=== PATIENT | female | born 1980 | race African-American/Black ===

== ENCOUNTER 2019-07-10 18:10 | Inpatient (IN) | payer BC ==
[~2019-07-10] VITALS: Ht 154.9 cm; Wt 61.7 kg
[2019-07-10 19:10] LABS: CHLORIDE 105 mEq/L (98-107)
[2019-07-10 19:15] LABS: D-DIMER < 0.19 mg/L FEU (<0.50); ETHANOL BLOOD < 10 mg/dL; INR 1.1; PROTHROMBIN TIME 11.2 sec (9.6-11.0)
[2019-07-10 19:17] LABS: LDL CHOLESTEROL 128 mg/dL (5-100)
[2019-07-10 19:20] LABS: CREATINE KINASE 63 IU/L (26-192)
[2019-07-10 19:21] LABS: BASOPHILS % 0.6 % (0.0-2.0); EOSINOPHILS % 1.7 % (0.0-5.0); HEMATOCRIT. 38.9 % (36.0-48.0); HEMOGLOBIN. 13.1 g/dL (12.0-16.0); LYMPHOCYTES % 38.8 % (20.0-50.0); MEAN CORPUSCULAR HEMOGLOBIN 30.3 pg (28.0-32.0); MEAN CORPUSCULAR VOLUME 89.9 fL (81.0-99.0); MEAN PLATELET VOLUME 8.4 fl (7.4-10.4); MONOCYTES % 7.1 % (2.0-8.0); NEUTROPHILS % 51.8 % (40.0-76.0); PLATELET 212 x1000/uL (130-400); RED BLOOD CELL COUNT 4.32 mill/uL (4.2-5.4); RED CELL DISTRIBUTION WIDTH 13.6 % (11.6-14.6)
[2019-07-10 19:22] LABS: HCG SCREEN NEGATIVE
[2019-07-10 20:00] LABS: CLARITY URINE CLEAR (CLEAR); COLOR URINE YELLOW (YELLOW); KETONES URINE NEGATIVE (NEGATIVE); LEUKOCYTE ESTERASE URINE NEGATIVE (NEGATIVE); NITRITE URINE NEGATIVE (NEGATIVE); OCCULT BLOOD URINE NEGATIVE (NEGATIVE); PROTEIN URINE NEGATIVE (NEGATIVE); SPECIFIC GRAVITY URINE 1.015 (1.005-1.030); UROBILINOGEN URINE 0.2 E.U./dL (0.2-1.0)
[2019-07-10 20:36] LABS: *AMPHETAMINES SCREEN URINE NEGATIVE (NEGATIVE); *BARBITURATES SCREEN URINE NEGATIVE (NEGATIVE); *BENZODIAZEPINES SCREEN URINE NEGATIVE (NEGATIVE); *COCAINE SCREEN URINE NEGATIVE (NEGATIVE); METHADONE URINE SCREEN NEGATIVE (NEGATIVE); OPIATES URINE SCREEN NEGATIVE (NEGATIVE)
[2019-07-10 20:37] LABS: CANNABINOID URINE SCREEN NEGATIVE (NEGATIVE); PHENCYCLIDINE URINE SCREEN NEGATIVE (NEGATIVE)
[2019-07-10] MEDS ORDERED: ASPIRIN 81MG TABLET PO ONE (21:15)
[2019-07-11] MEDS ORDERED: MAGNESIUM/ALUMINUM HYDROXIDE/SIMETHICONE 30ML UDC PO PRN (00:30)
[2019-07-11] MEDS ORDERED: ACETAMINOPHEN 325MG TABLET PO PRN (00:30)
[2019-07-11] MEDS ORDERED: CLONIDINE 0.1MG TABLET PO PRN (00:30)
[2019-07-11] MEDS ORDERED: GUAIFENESIN 200MG/10ML SUGAR FREE UDC PO PRN (00:30)
[2019-07-11] MEDS ORDERED: DOCUSATE SODIUM 100MG CAPSULE PO PRN (00:30)
[2019-07-11] MEDS ORDERED: ONDANSETRON HCL 4MG/2ML INJ IV PRN (00:30)
[2019-07-11] MEDS ORDERED: HYDROCODONE/ACETAMINOPHEN 5/325MG TABLET PO PRN (00:30)
[2019-07-11 02:55] VITALS: BP 117/67
[2019-07-11 04:00] VITALS: BP 98/51
[2019-07-11 08:00] VITALS: BP 104/69
[2019-07-11] MEDS ORDERED: LISINOPRIL 20MG TABLET PO SCH (09:00)
[2019-07-11] MEDS ORDERED: ASPIRIN 81MG EC TABLET PO SCH (09:00)
[2019-07-11] MEDS ORDERED: AMLODIPINE 10MG TABLET PO SCH (09:00)
[2019-07-11 14:02] VITALS: BP 104/59
[2019-07-11] MEDS ORDERED: ATORVASTATIN CALCIUM 10MG TABLET PO SCH (21:00)
== END 2019-07-11 16:04 | disposition home or self-care (01) | DRG 78 ==
LOC: ER 18:10 → 8WST 22:51 → EDBEDREQ 22:54 → EDBEDREQSVC 22:54 → EDBEDREQTM 22:54 → ENRESERV 23:39
PROVIDERS: ADMIT Hospitalist; ATTEND Hospitalist
DX: I67.4 Hypertensive encephalopathy (principal); G45.9 Transient cerebral ischemic attack, unspecified; E78.5 Hyperlipidemia, unspecified; I10 Essential (primary) hypertension; G43.909 Migraine, unspecified, not intractable, without status migrainosus
CPT/HCPCS: 36415; 70551; 71045; 80305; 80320; 81003; 82550; 82962; 83721; 83880; 84484; 84703; 85379; 93005; 99285; G0480